=== PATIENT | male | born 1995 | race Hispanic/Latino ===

== ENCOUNTER 2018-12-03 11:51 | Emergency (ER) | payer SELFPAY ==
[~2018-12-03] VITALS: Ht 180.3 cm; Wt 85.0 kg
[2018-12-03] MEDS ORDERED: FLOXIN OTIC0.3 % AD (13:02)
[2018-12-03] MEDS ORDERED: ZITHROMAX500 MG PO (13:02)
[2018-12-03 13:15] VITALS: BP 144/75
== END 2018-12-03 13:15 | disposition home or self-care (01) | DRG 156 ==
LOC: ED 11:51
PROC: 09C3XZZ Extirpation of Matter from Right External Auditory Canal, External Approach (ICD-10-PCS; principal; 2018-12-03)
DX: T16.1XXA Foreign body in right ear, initial encounter (principal); S09.91XA Unspecified injury of ear, initial encounter; X58.XXXA Exposure to other specified factors, initial encounter; Y92.009 Unspecified place in unspecified non-institutional (private) residence as the place of occurrence of the external cause

== ENCOUNTER 2022-01-27 15:53 | Emergency (ER) | payer SELFPAY ==
[~2022-01-27] VITALS: Ht 180.3 cm; Wt 95.4 kg
[~2022-01-27 15:53] MED LIST: FLOXIN OTIC0.3 % AD; ZITHROMAX500 MG PO
[2022-01-27 16:12] VITALS: BP 129/78
[2022-01-27 16:15] VITALS: BP 125/77
[2022-01-27] MEDS ORDERED: ZPAK PO (16:20)
[2022-01-27] MEDS ORDERED: MEDDOSEPAK PO (16:20)
[2022-01-27 16:30] VITALS: BP 122/77
[2022-01-27 16:45] VITALS: BP 117/73
[2022-01-27 17:00] VITALS: BP 122/79
[2022-01-27 17:22] LABS: HEMOGLOBIN 15.3 g/dl (14.0-18.0); MEAN CELL VOLUME 92.9 fL CALC (80.0-100.0); MEAN CORPUSCULAR HGB 30.9 pG CALC (26.0-32.0); MEAN CORPUSCULAR HGB CONC 33.3 g/dL CAL (32.0-36.0); NEUT# 11.3 thou/uL (1.82-7.42); RED BLOOD COUNT 4.95 mill/uL (4.70-6.10); RED CELL DISTRI WIDTH 11.4 % (11.5-15.5)
[2022-01-27 17:29] LABS: ALBUMIN 4.3 g/dL (3.2-5.0); ALKALINE PHOSPHATASE 97 u/l (38-126); ANION GAP 14 (6-22 (CALC)); BILIRUBIN, TOTAL 0.5 mg/dL (0.0-1.4); BUN 11 mg/dL (9-20); BUN/CREATININE RATIO 14 (12-20 (CALC)); CARBON DIOXIDE 29 mmol/l (22-30); CHLORIDE 100 mmol/l (95-108); CREATININE 0.8 mg/dL (0.7-1.3); GFR FOR AFR.AMER. > 60 ML/MIN (>=60 (CALC)); GFR OTHER RACES > 60 ML/MIN (>=60 (CALC)); POTASSIUM 4.4 mmol/l (3.5-5.1); SGOT/AST 21 u/l (17-59); SODIUM 138 mmol/l (137-146)
[2022-01-27 19:40] VITALS: BP 122/79
== END 2022-01-27 19:45 | disposition short-term general hospital (02) | DRG 153 ==
LOC: ED 15:53
PROVIDERS: Nurse Practitioner
DX: J36 Peritonsillar abscess (principal); Z20.822 Contact with and (suspected) exposure to COVID-19
CPT/HCPCS: Q9967

== ENCOUNTER 2022-02-23 10:04 | Emergency (ER) | payer SELFPAY ==
[~2022-02-23] VITALS: Ht 188 cm; Wt 81.6 kg
[~2022-02-23 10:04] MED LIST changes: +MEDDOSEPAK PO; +ZPAK PO
[2022-02-23 10:18] VITALS: BP 128/78
[2022-02-23] MEDS ORDERED: EC-NAPROXEN500 MG PO (10:29)
[2022-02-23] MEDS ORDERED: OMNI-PAC300 MG PO (10:29)
[2022-02-23 10:30] VITALS: BP 120/70
[2022-02-23 11:00] VITALS: BP 118/69
== END 2022-02-23 11:21 | disposition home or self-care (01) | DRG 153 ==
LOC: ED 10:04
DX: J02.9 Acute pharyngitis, unspecified (principal)